=== PATIENT | female | born 1950 | race African-American/Black ===

== ENCOUNTER 2017-01-26 07:00 | Outpatient (CLI) | payer BC, MEDICARE ==
[~2017-01-26] VITALS: Ht 167.6 cm; Wt 68.5 kg
[2017-01-26] VITALS (14 sets, daily range): BP systolic 118–152; BP diastolic 64–78
[~2017-01-26 07:00] MED LIST: ASPI81TA44 PO; LISI40TA PO; PANT40TA3 PO; VERA80TA2 PO
[2017-01-26] MEDS ORDERED: ASPIRIN 325 MG TABLET PO ONE (07:15)
[2017-01-26 07:39] LABS: HEMATOCRIT 44.8 % (36.0-47.0); HEMOGLOBIN 14.8 g/dL (12.0-15.5); RED BLOOD COUNT 4.59 x10^6/uL (3.50-5.40); RED CELL DISTRIBUTION WIDTH 13.4 % (11.5-14.5)
[2017-01-26 07:48] LABS: INR 1.1 (0.8-1.1); PROTHROMBIN TIME PATIENT 13.8 SEC (11.7-14.0)
[2017-01-26 07:49] LABS: CALCIUM 9.2 mg/dL (8.5-10.1); CREATININE 0.9 mg/dL (0.6-1.0)
[2017-01-26] MEDS ORDERED: IODIXANOL 320 MG/ML 100 ML VIAL. ONE (07:50)
[2017-01-26] MEDS ORDERED: LIDOCAINE 2% 20 ML VIAL. ONE (07:50)
[2017-01-26] MEDS ORDERED: VERAPAMIL 5 MG/2 ML VIAL. ONE (08:01)
[2017-01-26] MEDS ORDERED: NITROGLYCERIN 200 MCG/2 ML SYRINGE FOR CATH/VASC LAB. ONE (08:01)
[2017-01-26] MEDS ORDERED: fentaNYL PF VIAL 100 MCG/2 ML VIAL ONE (08:04)
[2017-01-26] MEDS ORDERED: HEPARIN for IV BOLUS 10,000 UNIT/10 ML VIAL. ONE (08:04)
[2017-01-26] MEDS ORDERED: MIDAZOLAM HCL/PF 2 MG/2 ML VIAL. ONE (08:04)
[2017-01-26] MEDS ORDERED: MIDAZOLAM HCL/PF 2 MG/2 ML VIAL. IV ONE (08:30)
[2017-01-26] MEDS ORDERED: NITROGLYCERIN 200 MCG/2 ML SYRINGE FOR CATH/VASC LAB. IART ONE (08:30)
[2017-01-26] MEDS ORDERED: VERAPAMIL 5 MG/2 ML VIAL. IART ONE (08:30)
[2017-01-26] MEDS ORDERED: HEPARIN for IV BOLUS 10,000 UNIT/10 ML VIAL. IART ONE (08:30)
[2017-01-26] MEDS ORDERED: fentaNYL PF VIAL 100 MCG/2 ML VIAL IV ONE (08:30)
[2017-01-26] MEDS ORDERED: IODIXANOL 320 MG/ML 100 ML VIAL. IART ONE (08:30)
[2017-01-26] MEDS ORDERED: LIDOCAINE 2% 20 ML VIAL. IJ ONE (08:30)
[2017-01-26] MEDS ORDERED: CONTRAST GIVEN MC PRN (08:45)
--- NOTE | 2017-01-26 11:39 | CARD ---
APPROVED REPORT Procedure(s) performed: Left heart catheterization Coronary angiography HISTORY The patient is a 66 year-old female with a history of : hypertension, Persistent dyspnea and exertion al chest pain. . INDICATION The indication(s) include : unstable angina . PROCEDURE NARRATIVE The patient was brought electively to the cardiac catheterization lab. A timeout was performed confi rming the patient's name, date of , procedure, and site of procedure. All necessary personnel w ere wearing the appropriate protective equipment and radiation monitor devices. After explaining the risks and benefits of the procedure and alternatives, informed consent was obtained. (See nursing no rolando for medications administered). The right wrist was sterilely prepped and draped in the usual fas hion. The right wrist was infiltrated with 1 mL of 2% lidocaine for subcutaneous anesthesia. A 6 Fr ench Terumo glide sheath was inserted into the right radial artery without difficulty. Right and lef t coronary angiography was performed using a 6Fr TIG 4.0 catheter. Left ventricular end diastolic pr essure was obtained with a pigtail catheter and pullback was performed after left ventriculography. All catheter exchanges and advancements were performed over a guidewire. At case completion the righ t radial sheath was removed and a Terumo radial band was applied with 13 ml of air. The patient tole rated the procedure well and there were no immediate complications. HEMODYNAMICS: LVEDP 12 mm Hg No gradient on LV to aortic pullback. LEFT VENTRICULOGRAM: EF 65% Anterobasal: Normal. Anterolateral: Normal Apical: Normal Diaphragmatic: Normal Posterobasal: Normal CORONARY ANGIOGRAPHY: LM is a large caliber vessel with normal angiographic appearance. LAD is a large caliber vessel with a proximal to mid 30% stenosis. Ramus is a moderate caliber vessel with normal angiographic appearance. LCx is a moderate caliber non-dominant vessel with normal angiographic appearance. OM1 is a moderate caliber vessel with normal angiographic appearance. RCA is a large caliber dominant vessel with normal angiographic appearance. RPDA and RPL are moderate caliber vessels with normal angiographic appearance. Conclusion 1. Normal left sided filling pressures and LV function. EF 65% 2. No significant obstructive coronary disease. Recommendations Agg[facility] Therapy
== END 2017-01-26 11:50 | disposition home or self-care (01) ==
LOC: CCL 07:00
PROVIDERS: ATTEND Internal Medicine Cardiovascular Disease
DX: I20.0 Unstable angina (principal); I10 Essential (primary) hypertension; F41.9 Anxiety disorder, unspecified; K21.9 Gastro-esophageal reflux disease without esophagitis; Z79.01 Long term (current) use of anticoagulants; Z80.1 Family history of malignant neoplasm of trachea, bronchus and lung; Z80.3 Family history of malignant neoplasm of breast
CPT/HCPCS: 36415; 80048; 85027; 85610; 85730; 93458; 99152; 99153; C1769; C1892; J2250; J3010; J3490

== ENCOUNTER → 2020-07-09 | Outpatient (CLI) | payer BC ==
[2017-01-26 11:30] VITALS: BP 128/76
[~2020-07-09] MED LIST changes: -ASPI81TA44 PO; +ASPI81TA59 PO; +LISI-130 PO; -LISI40TA PO; -PANT40TA3 PO; +PANT40TA77 PO; -VERA80TA2 PO; +VERA80TA4 PO
--- NOTE | 2020-07-09 16:55 | RAD ---
EXAM: ULTRASOUND-GUIDED THYROID FINE-NEEDLE ASPIRATION. HISTORY: Thyroid nodules. Ultrasound-guided biopsy is requested. 2 nodules in the right thyroid lobe and one in the left thyroid lobe were targeted for biopsy. These are a 1.4 cm mid anterior right thyroid lobe nodule, a 1.7 cm mid posterior right thyroid lobe nodule, and a 1.6 cm left mid thyroid lobe nodule. FINDINGS: The procedure along with its risks and benefits were explained to the patient. They agreed to proceed. A timeout procedure was performed. Sonographic images of the thyroid gland were obtained. The solid target nodules in the bilateral thyroid lobes were adequately visualized for biopsy. In separate successive procedures using fresh sterile equipment for each biopsy, the following procedure was observed. The overlying skin was sterilely prepped and infiltrated with 1% lidocaine for local anesthesia. Under ultrasound guidance, 3 aspirates were obtained using 25-gauge needles. These were hand delivered to pathology who determined them adequate for diagnosis. A sterile dressing was placed. There were no immediate complications. IMPRESSION: 1. Successful ultrasound-guided fine-needle aspiration of the 3 thyroid nodules, 2 on the right and one on the left.. Electronically signed by: Aramis Chandler MD (07/09/2020 4:51 PM) [id number]
--- NOTE | 2020-07-15 14:11 | PATHOLOGY ---
Note [facility] Accession Number: [id number] TESTS RESULT FLAG UNITS REF RANGE LAB Clinician Provided Cytology Information No. of containers..01 Other (Miscellaneous) Source: 01 N DIAGNOSIS: 02 N NEGATIVE FOR MALIGNANT CELLS. BETHESDA CATEGORY II. SPECIMEN CONSISTS OF A BORDERLINE ADEQUATE NUMBER OF CLUSTERS OF BENIGN FOLLICULAR CELLS, HEMOSIDERIN-LADEN MACROPHAGES, AND BLOOD. THIS PATTERN IS SUGGESTIVE OF AN ADENOMATOUS NODULE. THIS EVALUATION INCLUDES EXAMINATION OF A CELL BLOCK. Signed out by: 02 Moy Elmore MD, Pathologist NPI- [id number] Performed by: Citlali Esquivel, Car Trimmer ([facility]) Gross description: 01 30ML, CLEAR RED, 3FX 3AD 3H /LCS 07/09/2020 1909 Local FLAG LEGEND: L-Low Normal,H-High Normal,LL-Alert Low,HH-Alert High <-Panic Low,>-Panic High,A-Abnormal,AA-Critical Abnormal Performed at: [facility] [place] [address] [facility] [address] [place] [address] Jered Vicente MD, 02 [facility] [place] [address] [place] [address] Moy Elmore MD, Specimen Comment: A courtesy copy of this report has been sent to [phone] Specimen Comment: [phone], Specimen Comment: [id number] Specimen Comment: Report sent to ,DR FERRER / DR FALCON Specimen Comment: A duplicate report has been generated due to demographic updates. Performed at: [address] [facility] [id number] [facility] [address], [place] [id number] MD Jered Vicente MD Phone: [phone]
--- NOTE | 2020-07-15 14:11 | PATHOLOGY ---
Note [facility] Accession Number: [id number] TESTS RESULT FLAG UNITS REF RANGE LAB Clinician Provided Cytology Information No. of containers..01 Other (Miscellaneous) Source: 01 N DIAGNOSIS: 02 N NEGATIVE FOR MALIGNANT CELLS. BETHESDA CATEGORY II. SPECIMEN CONSISTS OF BENIGN FOLLICULAR CELLS, COLLOID, AND BLOOD. THIS PATTERN IS CONSISTENT WITH AN ADENOMATOUS NODULE. THIS INTERPRETATION INCLUDES EVALUATION OF A CELL BLOCK. Pathologist ICD10: 02 E04.1 Signed out by: Moy Elmore MD, Pathologist NPI- [id number] Performed by: Citlali Esquivel, Ticket Dispatcher ([facility]) Gross description: 01 30ML, CLEAR RED, 3FX 3AD 3H /LCS 07/09/20201910 Local FLAG LEGEND: L-Low Normal,H-High Normal,LL-Alert Low,HH-Alert High <-Panic Low,>-Panic High,A-Abnormal,AA-Critical Abnormal Performed at: [facility] [place] [address] [facility] [address] [place] [address] Jered Vicente MD, 02 [facility] [place] [address] [place] [address] Moy Elmore MD, Specimen Comment: A courtesy copy of this report has been sent to [phone] Specimen Comment: [phone], Specimen Comment: [id number] Specimen Comment: Report sent to ,DR FERRER / DR FALCON Specimen Comment: A duplicate report has been generated due to demographic updates. Performed at: 01 [facility] [id number] [facility] [address], [place], [place] [id number] MD Jered Vicente MD Phone: [phone]
--- NOTE | 2020-07-15 14:11 | PATHOLOGY ---
Note [facility] Accession Number: [id number] TESTS RESULT FLAG UNITS REF RANGE LAB Clinician Provided Cytology Information No. of containers..01 Other (Miscellaneous) Source: 01 N DIAGNOSIS: 02 N NEGATIVE FOR MALIGNANT CELLS. BETHESDA CATEGORY II. SPECIMEN CONSISTS OF A BORDERLINE ADEQUATE NUMBER OF CLUSTERS OF BENIGN FOLLICULAR CELLS, HEMOSIDERIN-LADEN MACROPHAGES, AND BLOOD. THIS PATTERN IS SUGGESTIVE OF AN ADENOMATOUS NODULE. THIS EVALUATION INCLUDES EXAMINATION OF A CELL BLOCK. Signed out by: 02 Moy Elmore MD, Pathologist NPI- [id number] Performed by: Citlali Esquivel, Studio Camera Operator ([facility]) Gross description: 01 30ML, CLEAR RED, 3FX 3AD 3H /LCS 07/09/2020 1907 Local FLAG LEGEND: L-Low Normal,H-High Normal,LL-Alert Low,HH-Alert High <-Panic Low,>-Panic High,A-Abnormal,AA-Critical Abnormal Performed at: [facility] [place] [address] [facility] [address] [place] [address] Jered Vicente MD, 02 [facility] [place] [address] [place] [address] Moy Elmore MD, Specimen Comment: A courtesy copy of this report has been sent to [phone] Specimen Comment: [id number] Specimen Comment: [id number] Specimen Comment: Report sent to / DR FERRER Specimen Comment: A duplicate report has been generated due to demographic updates. Performed at: [address], [place] [id number] MD Jered Vicente MD Phone: [phone]
== END | disposition home or self-care (01) ==
LOC: US 09:32
PROVIDERS: ATTEND Otolaryngology
DX: E04.2 Nontoxic multinodular goiter (principal); I10 Essential (primary) hypertension; K21.9 Gastro-esophageal reflux disease without esophagitis; F41.9 Anxiety disorder, unspecified; Z79.899 Other long term (current) drug therapy; Z79.82 Long term (current) use of aspirin; Z80.3 Family history of malignant neoplasm of breast
CPT/HCPCS: 10005; 10006; 60300; 76942; 88173; 88305